=== PATIENT | female | born 1945 | race Caucasian/White ===

== ENCOUNTER 2017-06-02 21:07 | Emergency (ER) | payer MEDICARE, OTHER | END 2017-06-03 00:32 | disposition home or self-care (01) | LOC: ERS 21:07 | DX: J06.9 Acute upper respiratory infection, unspecified (principal); F41.9 Anxiety disorder, unspecified | CPT/HCPCS: 99283 ==

== ENCOUNTER 2017-12-15 13:37 | Outpatient (CLI) | payer MEDICARE ==
--- NOTE | 2017-12-15 15:52 | MRI ---
MRI CERVICAL SPINE WITHOUT CONTRAST: HISTORY: G25.0, essential tremor. COMPARISON: CT cervical spine 04/21/16. FINDINGS: The cerebellar tonsils terminate at the level of the foramen magnum. The marrow signal in the clivus is normal. Normal cervical lordosis. Background marrow signal in the since is normal. Paraspinal musculature is symmetric. No atrophy. Levels are as follows: C2-3: There Is low-grade circumferential disk bulge. No significant neural foraminal spinal canal n arrowing. C3-4: Moderate degenerative disk disease space height loss. Moderate uncinate process hypertrophy. Posterior disk-osteophyte complex. Mild ligamentum flavum hypertrophy. The spinal canal measures 9 mm. Moderate bilateral neural foraminal narrowing. C4-5: Low-grade circumferential disk bulge. Moderate facet arthropathy. The spinal canal is not na rrowed. Mild left-sided neural foraminal narrowing. C5-6: Moderate degenerative disk space height loss. There is a right central and paracentral spinal canal. The spinal canal is not significantly narrowed. No neural foraminal narrowing. C6-7: There is a central and left paracentral posterior disk-osteophyte complex effacing the ventral CSF space. The spinal canal measures 9 mm. Mild left-side neural foraminal narrowing. C7-T1: No significant neural foraminal or spinal canal narrowing. IMPRESSION: Moderate spondylosis as described above. No fracture or malalignment. POS: JA
== END 2017-12-15 13:38 | disposition home or self-care (01) ==
LOC: SCSMRI 13:37
PROVIDERS: ATTEND Psychiatry & Neurology Neurology
DX: G25.0 Essential tremor (principal); M47.892 Other spondylosis, cervical region
CPT/HCPCS: 72141

== ENCOUNTER 2018-05-11 21:17 | Emergency (ER) | payer MEDICARE | END 2018-05-11 22:13 | disposition home or self-care (01) | LOC: ERS 21:17 | DX: L03.113 Cellulitis of right upper limb (principal); F41.9 Anxiety disorder, unspecified | CPT/HCPCS: 99283 ==

== ENCOUNTER 2019-08-05 22:31 | Emergency (ER) | payer MEDICARE ==
[2019-08-05 23:02] LABS: #Eosinphils 0.3 thou/uL (0.0-0.7); #Lymphocytes 1.4 thou/uL (1.20-3.40); #Monocytes 0.5 thou/uL (0.11-0.59); #Neutrophils 3.7 thou/uL (1.40-6.50); %Basophils 0.6 % (0.0-1.0); %Eosinophils 5.3 % (0.0-10.0); %Lymphocytes 23.5 % (21.0-51.0); %Monocytes 8.9 % (0.0-10.0); %Neutrophils 61.8 % (42.0-75.0); Hemoglobin 12.7 g/dL (12.0-16.0); Mean Corpuscular Hemoglobin 28.9 pg (27.0-31.0); Mean Platelet Volume 7.7 fL (7.4-10.4); Platelet Count 196 thou/uL (130-400); RBC Distribution Width 13.1 % (11.5-14.5); Red Blood Cell (RBC) Count 4.38 mill/uL (4.20-5.40); White Blood Cell (WBC) Count 5.9 thou/uL (4.8-10.8)
--- NOTE | 2019-08-05 23:20 | RAD ---
Chest one view HISTORY: Palpitations. COMPARISON: 08/26/2016. FINDINGS: Cardiac silhouette is magnified by projection. Pulmonary vasculature upper limits of normal . Mild linear scarring at the left lateral lung base. No lobar consolidation or evidence of pneumothorax. hall monitor leads overlie the chest. IMPRESSION: No active cardiopulmonary abnormalities are demonstrated.
[2019-08-05 23:24] LABS: ALT (SGPT) 19 U/L (8-55); AST (SGOT) 16 U/L (5-34); Alkaline Phosphatase 96 U/L (40-110); Anion Gap 12 mmol/L (10-20); BUN (Urea Nitrogen) 16 mg/dL (9.8-20.1); Bilirubin, Total 0.3 mg/dL (0.2-1.2); Calc. Creatinine Clearance 0 mL/min (70-130); Carbon Dioxide 27 mmol/L (23-31); Chloride 103 mmol/L (98-107); Estimated GFR-MDRD 49; Globulin 2.9 g/dL (2.4-3.5); Glucose 165 mg/dL (83-110); Potassium 3.9 mmol/L (3.5-5.1); Protein, Total 6.9 g/dL (6.0-8.3); Sodium 138 mmol/L (136-145)
[2019-08-06] MEDS ORDERED: Propranolol 10 MG TAB PO SCH (00:45)
== END 2019-08-06 01:22 | disposition home or self-care (01) ==
LOC: ERS 22:31
DX: R00.2 Palpitations (principal); F41.9 Anxiety disorder, unspecified; Z79.899 Other long term (current) drug therapy
CPT/HCPCS: 71045; 80053; 83880; 84484; 85025; 93005